=== PATIENT | female | born 1955 | race Caucasian/White ===

== ENCOUNTER 2018-07-27 10:09 | Emergency (ER) | payer OTHER ==
[2018-07-27] MEDS ORDERED: Diltiazem IV* 5 MG/ML 5 ML VIAL (for loading dose/IV Push) (25 MG) ONE (10:33)
[2018-07-27] MEDS ORDERED: Diltiazem IV* 5 MG/ML 5 ML VIAL (for loading dose/IV Push) (25 MG) IV SLOW PU ONE (10:34)
--- NOTE | 2018-07-27 10:38 | ED ---
Palpitations / Dysrhythmia - HPI Summary HPI Summary: This pt is a 62 y/o female presenting to [facility] via EMS for palpitations. Pt reports she was at her PCP's office today for a check up to follow up on her DM. Pt states her PCP told her she was in afib and was referred to the ED. She notes weakness and palpitations, characterized as racing heart beat, since this morning. Denies nausea, vomiting, chest pain, SOB. Last time she had palpitations prior to today was a few weeks ago. Pt has had palpitations intermittently in the past. Pt reports she was told by a industry consultant she had a "leaky valve" and placed her on beta blockers. She tried the medications but because they didn't make her feel well she stopped them. Denies diagnosis of afib. Denies hx of ND, HTN. She has never had a stress test but has had a holter monitor in the past. She is NOT on any anticoagulants. Pt is on Metformin. - History of Current Complaint Chief Complaint: EDDysrhythmPalp Hx Obtained From: Patient Onset/Duration: Lasting Hours, Still Present Severity Currently: Moderate Character: Fast, Irregular Aggravating: Nothing Alleviating: Nothing Associated Signs & Symptoms: Negative - Allergy/Home Medications Allergies/Adverse Reactions: Allergies Allergy/AdvReac Type Severity Reaction Status Date / Time No Known Allergies Allergy Verified 07/27/18 10:19 PMH/Surg Hx/FS Hx/Imm Hx Endocrine/Hematology History: Reports: Hx Diabetes Cardiovascular History: Denies: Hx Hypertension, Hx Myocardial Infarction Musculoskeletal History: Reports: Hx Arthritis Infectious Disease History: No Infectious Disease History: Denies: Traveled Outside the [place] in Last 30 Days - Family History Known Family History: Negative: Respiratory Disease - Social History Alcohol Use: Occasionally Substance Use Type: Reports: None Smoking Status (MU): Never Smoked Tobacco Review of Systems Negative: Fever, Chills Positive: Palpitations. Negative: Chest Pain Negative: Shortness Of Breath Negative: Vomiting, Nausea Positive: Weakness All Other Systems Reviewed And Are Negative: Yes Physical Exam - Summary Physical Exam Summary: Appearance: Well appearing, no pain distress Skin: warm, dry, reflects adequate perfusion Head/face: normal Eyes: EOMI, PATRICIA ENT: normal Neck: supple, non-tender Respiratory: CTA, breath sounds present Cardiovascular: Irregularly irregular heart beat and tachycardic Abdomen: non-tender, soft Musculoskeletal: normal, strength/ROM intact Neuro: normal, sensory motor intact, A&Ox3 Triage Information Reviewed: Yes Vital Signs On Initial Exam: Initial Vitals Temp Pulse Resp BP Pulse Ox 98.2 F 140 16 135/101 97 07/27/18 10:16 07/27/18 10:16 07/27/18 10:16 07/27/18 10:16 07/27/18 10:16 Vital Signs Reviewed: Yes Diagnostics - Vital Signs Vital Signs Temp Pulse Resp BP Pulse Ox 07/27/18 10:16 98.2 F 140 16 135/101 97 - Laboratory Result Diagrams: 07/27/18 11:30 07/27/18 10:25 Lab Statement: Any lab studies that have been ordered have been reviewed, and results considered in the medical decision making process. - Radiology Chest XR Radiology Interpretation Completed By: Radiologist Summary of Radiographic Findings: IMPRESSION: No active cardiopulmonary disease. Dr. Shearer has reviewed this report. - EKG 10:19 Cardiac Rate: Tachycardia - at 130 bpm EKG Rhythm: Atrial Fibrillation Summary of EKG Findings: Afib at 130 bpm 12:24 Cardiac Rate: NL - at 63 bpm EKG Rhythm: Sinus Rhythm Summary of EKG Findings: No acute changes Re-Evaluation - Re-Evaluation First Eval Re-Evaluation Time: 10:51 Change: Improved Comment: Heart rate in the 70s after Diltiazem. Second Eval Re-Evaluation Time: 12:10 Change: Improved Comment: Reviewed the lab results with the pt. Will repeat another EKG and speak with industry consultant. Third Eval Re-Evaluation Time: 12:56 Change: Improved Comment: Discussed the discharge plan with pt. She understands and agrees. Course/Dx - Course Assessment/Plan: Pt is a 62 y/o female who presents via EMS for palpitations. Pt states her PCP told her she was in afib and was referred to the ED. She notes weakness and palpitations, characterized as racing heart beat, since this morning. Blood work, urinalysis, EKG, CXR obtained. EKG shows atrial fibrillation at 130 bpm. Chest XR is negative. In the ED course the pt received diltiazem, magnesium sulfate. Discussed with Dr. Torres, industry consultant , who recommends Cardizem and Eliquis. Dr. Torres recommends discharge and follow up with him in his office. Pt will be discharged home with follow up from Dr. Torres. Pt was given prescriptions for Eliquis and Cardizem. She is instructed to return to the ED for any new or worsening symptoms. - Diagnoses Differential Diagnosis/HQI/PQRI: Positive: Coronary Artery Disease, Paroxymal SVT, Other - a fib Provider Diagnoses: Atrial fibrillation - Physician Notifications Discussed Care Of Patient With: Darrin oTrres - industry consultant Time Discussed With Above Provider: 12:42 Instructed by Provider To: Other - Discussed with Dr. Torres, industry consultant, who recommends Cardizem and Eliquis, discharge and follow up with him in his office. - Critical Care Time Critical Care Time: 30-74 min Discharge - Sign-Out/Discharge Documenting (check all that apply): Patient Departure - Discharge home Patient Received Moderate/Deep Sedation with Procedure: No - Discharge Plan Condition: Stable Disposition: HOME Prescriptions: Apixaban [Eliquis] 5 mg PO BID #60 tab.ds.pk dilTIAZem HCl [Cardizem LA] 120 mg PO ONCE #30 tab.er.24h Patient Education Materials: A-fib (Atrial Fibrillation) (ED) Referrals: Darrin Torres DO [Medical Doctor] - Emil Garcia MD [Medical Doctor] - Additional Instructions: Please follow up with Dr. Torres, industry consultant, in 2-3 days. RETURN TO THE ED FOR ANY NEW OR WORSENING SYMPTOMS. - Billing Disposition and Condition Condition: STABLE Disposition: Home - Attestation Statements Document Initiated by Evelyne: Yes Documenting Scribe: Mary [place] Provider For Whom Evelyne is Documenting (Include Credential): Nathan Shearer MD Scribe Attestation: Mary Eckert, scribed for Nathan Shearer MD on 07/27/18 at 1352. Scribe Documentation Reviewed: Yes Provider Attestation: The documentation as recorded by the Mary charles accurately reflects the service I personally performed and the decisions made by me, Nathan Shearer MD Status of Scribe Document: Viewed
[2018-07-27 11:02] LABS: INR 0.92 (0.77-1.02)
[2018-07-27 11:38] LABS: Albumin 4.1 g/dL (3.2-5.2); Calcium 9.7 mg/dL (8.6-10.3); Magnesium 1.7 mg/dL (1.9-2.7); Potassium 4.2 mmol/L (3.5-5.0); Total Bilirubin 0.3 mg/dL (0.2-1.0)
[2018-07-27 11:41] LABS: ABS Basophils 0.1 10^3/ul (0-0.2); ABS Eosinophils 0.2 10^3/ul (0-0.6); ABS Lymphocytes 2.4 10^3/ul (1.0-4.8); ABS Monocytes 0.5 10^3/ul (0-0.8); ABS Neutrophils 5.6 10^3/ul (1.5-7.7); ABS Nucleated RBC 0 10^3/ul; Eosinophil % 2.7 %; Hematocrit 37 % (33-41); Hemoglobin 12.6 g/dL (12.0-16.0); Lymphocyte % 27.3 %; Mean Corpuscular HGB Conc 34 g/dL (31-36); Mean Corpuscular Hemoglobin 30 pg (27-31); Mean Corpuscular Volume 89 fL (80-97); Mean Platelet Volume 7.8 fL (7.4-10.4); Nucleated Red Blood Cells % 0.1; Platelet Count 359 10^3/uL (150-450); Red Cell Distribution Width 13 % (10.5-15); White Blood Count 8.8 10^3/uL (3.5-10.8)
[2018-07-27] MEDS ORDERED: Magnesium Sulfate 1 GM IV* 1 GM/100 ML BAG IV ONE (11:41)
[2018-07-27 11:44] LABS: Albumin/Globulin Ratio 1.8 (1-3); BUN/Creatinine Ratio 25.4 (8-20); EGFR African American 116.6 (>60); EGFR Non-African American 96.4 (>60); Globulin 2.3 g/dL (2-4); Total Protein 6.4 g/dL (6.4-8.9)
[2018-07-27 11:52] LABS: TSH (Thyroid Stimulating Horm) 1.43 mcIU/mL (0.34-5.60)
[2018-07-27] MEDS ORDERED: Apixaban* 5 MG TAB PO ONE (12:50)
[2018-07-27 12:52] LABS: Urine Appearance Clear; Urine Bacteria Absent (Absent); Urine Bilirubin Negative (Negative); Urine Blood 1+ (Negative); Urine Color Yellow; Urine Glucose Negative (Negative); Urine Ketones Negative (Negative); Urine Nitrite Negative (Negative); Urine Protein Negative (Negative); Urine Red Blood Cell Trace(0-2/hpf) (Absent); Urine Specific Gravity 1.011 (1.010-1.030); Urine Squamous Epithelial Cell Present (Absent); Urine Urobilinogen Negative (Negative); Urine White Blood Cell Trace(0-5/hpf) (Absent)
[2018-07-27] MEDS ORDERED: Diltiazem CD CAP* 120 MG PO SCH (13:00)
[2018-07-27 13:27] VITALS: BP 132/63
== END 2018-07-27 13:26 | disposition home or self-care (01) ==
LOC: ED 10:09
DX: I48.91 Unspecified atrial fibrillation (principal); E11.9 Type 2 diabetes mellitus without complications; M19.90 Unspecified osteoarthritis, unspecified site
CPT/HCPCS: 36415; 71045; 80053; 81003; 81015; 83605; 83735; 84443; 84484; 85025; 85610; 85730; 87086; 93005; 96374; 96375; 99284; A9270-GY; J3475

== ENCOUNTER 2019-01-20 22:16 | Emergency (ER) | payer OTHER ==
[2019-01-21 00:17] LABS: INR 1.23 (0.82-1.09)
[2019-01-21 00:28] LABS: Albumin 4.2 g/dL (3.2-5.2); Albumin/Globulin Ratio 1.7 (1-3); BUN/Creatinine Ratio 26.7 (8-20); Calcium 9.6 mg/dL (8.6-10.3); EGFR Non-African American 63.7 (>60); Globulin 2.5 g/dL (2-4); Potassium 4.5 mmol/L (3.5-5.0); Total Bilirubin 0.3 mg/dL (0.2-1.0); Total Protein 6.7 g/dL (6.4-8.9)
[2019-01-21 00:35] LABS: ABS Basophils 0.1 10^3/ul (0-0.2); ABS Eosinophils 0.1 10^3/ul (0-0.6); ABS Lymphocytes 3.6 10^3/ul (1.0-4.8); ABS Monocytes 0.7 10^3/ul (0-0.8); ABS Neutrophils 7.5 10^3/ul (1.5-7.7); Eosinophil % 1.2 %; Hematocrit 39 % (35-47); Hemoglobin 13.1 g/dL (12.0-16.0); Lymphocyte % 29.9 %; Mean Corpuscular HGB Conc 33 g/dL (31-36); Mean Corpuscular Hemoglobin 30 pg (27-31); Mean Corpuscular Volume 91 fL (80-97); Mean Platelet Volume 8.3 fL (7.4-10.4); Platelet Count 343 10^3/uL (150-450); Red Blood Count 4.35 10^6 /uL (3.70-4.87); Red Cell Distribution Width 13 % (10-15)
--- NOTE | 2019-01-21 01:04 | ED ---
Palpitations / Dysrhythmia - HPI Summary HPI Summary: The patient is a 63 y/o F presenting to [facility] with a chief complaint of atrial fibrillation episode with fluttering palpitations beginning 01/19/19. She reports that she had the fluttering sensation and noted a HR over 200 bpm two nights ago, per heart monitor. She took Metoprolol then, and the sensation resolved in about two hours. Yesterday, she had been riding bikes with episodes of resting, and then went home, had dinner, and had the fluttering again. She took Metoprolol to no relief with the dysrhythmia lasting since 1999 last night. Currently, her symptoms are rated 3/10 in severity. She additionally c/o mild pain in the left arm. She denies any dizziness or nausea. Her real estate leasing agent is Dr. Torres. She is scheduled for an ablation on 02/17/19. PMHx: DM Type II ( Metformin), Afib (dx one month ago), arthritis, osteoporosis. Nonsmoker, occasional EtOH, no substance use. Medications reviewed. Allergies noted. - History of Current Complaint Chief Complaint: EDDysrhythmPalp Time Seen by Provider: 01/21/19 00:57 Hx Obtained From: Patient Onset/Duration: Sudden Onset, Lasting Hours - current episode since 1999 last night, Still Present Severity Initially: Mild Severity Currently: Moderate Character: Fluttering Aggravating: Nothing Alleviating: Nothing - Allergy/Home Medications Allergies/Adverse Reactions: Allergies Allergy/AdvReac Type Severity Reaction Status Date / Time No Known Allergies Allergy Verified 01/20/19 22:28 Home Medications: Home Medications Losartan TAB* 25 mg PO DAILY 01/21/19 [History Confirmed 01/21/19] Metoprolol Succinate XL TAB* 25 mg PO DAILY 01/21/19 [History Confirmed 01/21/19 ] Multaq TAB* 1 tab PO DAILY 01/21/19 [History Confirmed 01/21/19] metFORMIN* 850 mg PO DAILY 01/21/19 [History Confirmed 01/21/19] PMH/Surg Hx/FS Hx/Imm Hx Endocrine/Hematology History: Reports: Hx Diabetes - Type II Cardiovascular History: Reports: Hx Atrial Fibrillation Denies: Hx Hypertension, Hx Myocardial Infarction Musculoskeletal History: Reports: Hx Arthritis, Hx Osteoporosis - Surgical History Surgical History: None Surgery Procedure, Year, and Place: none Infectious Disease History: No Infectious Disease History: Denies: Traveled Outside the [place] in Last 30 Days - Family History Known Family History: Negative: Respiratory Disease - Social History Alcohol Use: Occasionally Hx Substance Use: No Substance Use Type: Reports: None Hx Tobacco Use: No Smoking Status (MU): Never Smoked Tobacco Review of Systems Positive: Palpitations - fluttering sensation Negative: Nausea Positive: Myalgia - in left arm Neurological: Other - Negative: dizziness. All Other Systems Reviewed And Are Negative: Yes Physical Exam - Summary Physical Exam Summary: Appearance: Well-appearing, Well-nourished, lying in bed comfortably Skin: Warm, dry, no obvious rash Eyes: sclera anicteric, no conjunctival pallor ENT: mucous membranes moist, pharynx appears normal Neck: Supple, nontender Respiratory: Clear to auscultation, no signs of respiratory distress Cardiovascular: Irregularly irregular rate with controlled rhythm. No murmurs. Normal distal pulses in tibial and radial bilaterally. Abdomen: Soft, nontender, normal active bowel sounds present Musculoskeletal: Normal, Strength/ROM Intact Neurological: A&Ox3, awake and alert, mentation is normal, speech is fluent and appropriate Psychiatric: affect is normal, does not appear anxious or depressed Triage Information Reviewed: Yes Vital Signs On Initial Exam: Initial Vitals Temp Pulse Resp BP Pulse Ox 98.8 F 99 20 123/79 94 01/20/19 22:26 01/20/19 22:26 01/20/19 22:26 01/20/19 22:26 01/20/19 22:26 Vital Signs Reviewed: Yes Diagnostics - Vital Signs Vital Signs Temp Pulse Resp BP Pulse Ox 01/21/19 00:43 81 97 01/21/19 00:42 75 134/89 97 01/20/19 22:26 98.8 F 99 20 123/79 94 - Laboratory Lab Results: Lab Results 01/20/19 01/20/19 01/20/19 Range/Units 23:59 23:59 23:59 WBC 12.0 H (3.5-10.8) 10^3/uL RBC 4.35 (3.70-4.87) 10^6 /uL Hgb 13.1 (12.0-16.0) g/dL Hct 39 (35-47) % MCV 91 (80-97) fL MCH 30 (27-31) pg MCHC 33 (31-36) g/dL RDW 13 (10-15) % Plt Count 343 (150-450) 10^3/uL MPV 8.3 (7.4-10.4) fL Neut % (Auto) 62.8 % Lymph % (Auto) 29.9 % [place] % (Auto) 5.6 % Eos % (Auto) 1.2 % Baso % (Auto) 0.5 % Absolute Neuts (auto) 7.5 (1.5-7.7) 10^3/ul Absolute Lymphs (auto) 3.6 (1.0-4.8) 10^3/ul Absolute Monos (auto) 0.7 (0-0.8) 10^3/ul Absolute Eos (auto) 0.1 (0-0.6) 10^3/ul Absolute Basos (auto) 0.1 (0-0.2) 10^3/ul Absolute Nucleated RBC 0.0 10^3/ul Nucleated RBC % 0.0 INR (Anticoag Therapy) 1.23 H (0.82-1.09) Sodium 139 (135-145) mmol/L Potassium 4.5 (3.5-5.0) mmol/L Chloride 106 (101-111) mmol/L Carbon Dioxide 28 (22-32) mmol/L Anion Gap 5 (2-11) mmol/L BUN 24 (6-24) mg/dL Creatinine 0.90 (0.51-0.95) mg/dL Est GFR ( Amer) 77.0 (>60) Est GFR (Non-Af Amer) 63.7 (>60) BUN/Creatinine Ratio 26.7 H (8-20) Glucose 108 H (70-100) mg/dL Calcium 9.6 (8.6-10.3) mg/dL Total Bilirubin 0.30 (0.2-1.0) mg/dL AST 18 (13-39) U/L ALT 26 (7-52) U/L Alkaline Phosphatase 64 (34-104) U/L Troponin I 0.00 (<0.04) ng/mL Total Protein 6.7 (6.4-8.9) g/dL Albumin 4.2 (3.2-5.2) g/dL Globulin 2.5 (2-4) g/dL Albumin/Globulin Ratio 1.7 (1-3) Result Diagrams: 01/20/19 23:59 01/20/19 23:59 Lab Statement: Any lab studies that have been ordered have been reviewed, and results considered in the medical decision making process. - EKG 2233 Cardiac Rate: Other Rate - 105 bpm EKG Rhythm: Atrial Fibrillation Summary of EKG Findings: EKG at 2234 reveals atrial fibrillation at 105 bpm. No STEMI. Re-Evaluation - Re-Evaluation First Eval Re-Evaluation Time: 01:30 Comment: After Dr. Torres's consult with recommendation, the pt declined cardioversion at this time. We discussed plan for discharge. Course/Dx - Course Course Of Treatment: Pt is a 63 y/o F with cc of atrial fibrillation episodes over the last two days described as a fluttering sensation without much relief using Metoprolol at home. Upon physical exam, the pt exhibits an irregularly irregular rate with controlled rhythm. Blood work reveals WBCs 12.0, INR 1.23, BUN/Creatinine ratio 26.7, and glucose 108, without any other significant abnormalities. EKG at 2234 reveals atrial fibrillation at 105 bpm. I consulted with Dr. Torres from cardiology, and he recommends cardioversion instead of the ablation the pt has scheduled. After discussing this plan with the pt, she declines cardioversion at this time. We discussed plan for safe discharge with follow up with Dr. Torres. She understands and agrees with this plan. - Diagnoses Provider Diagnoses: Paroxysmal atrial fibrillation - Physician Notifications Discussed Care Of Patient With: Darrin Torres - cardiology Time Discussed With Above Provider: 01:10 Instructed by Provider To: Other - I discussed the pt's case with Dr. Torres, and he recommends cardioversion instead of ablation, so I will discuss with the pt. Discharge ED - Sign-Out/Discharge Documenting (check all that apply): Patient Departure - Patient will be discharged home. Patient Received Moderate/Deep Sedation with Procedure: No - Discharge Plan Condition: Good Disposition: HOME Patient Education Materials: AElefib (Atrial Fibrillation) (ED) Referrals: Darrin Torres DO [Medical Doctor] - Additional Instructions: Your heart rate is well controlled and you feel generally well, so it is ok to leave you in this rhythm and let your body reset it. If that doesn't happen over the next couple of days Dr. Torres can certainly arrange an outpatient elective cardioversion. If it becomes very bothersome to you we can see you back and cardiovert you here, though timing would be up to the patient flow in the ED. I will be on tomorrow night, and of course we always have physicians in the ED at all times. - Billing Disposition and Condition Condition: GOOD Disposition: Home - Attestation Statements Document Initiated by Evelyne: Yes Documenting Scribe: Ana Narayan Provider For Whom Evelyne is Documenting (Include Credential): Dr. Rc Peralta MD Scribe Attestation: I, Ana Narayan, scribed for Dr. Rc Peralta MD on 01/22/19 at 0500. Scribe Documentation Reviewed: Yes Provider Attestation: The documentation as recorded by the Ana charles accurately reflects the service I personally performed and the decisions made by me, Dr. Rc Peralta MD Status of Scribe Document: Viewed
[2019-01-21 02:06] VITALS: BP 0/0
== END 2019-01-21 01:40 | disposition home or self-care (01) ==
LOC: ED 22:16
DX: I48.0 Paroxysmal atrial fibrillation (principal); M79.602 Pain in left arm; E11.9 Type 2 diabetes mellitus without complications; Z79.84 Long term (current) use of oral hypoglycemic drugs
CPT/HCPCS: 36415; 80053; 84484; 85025; 85610; 93005; 99282

== ENCOUNTER 2023-06-13 09:36 | Inpatient (IN) ==
[2023-06-13] MEDS ORDERED: Azithromycin 500 mg/250 ml NS 500 MG/250 ML BAG IVPB ONE (10:31)
[2023-06-13 11:31] LABS: ABS Basophils 0.1 10^3/uL (0.0-0.1); ABS Lymphocytes 1.9 10^3/uL (1.0-4.8); ABS Monocytes 0.5 10^3/uL (0.0-0.9); ABS Neutrophils 10.8 10^3/uL (1.5-7.6); ABS Nucleated RBC 0.01 10^3/ul; Eosinophil % 0.1 %; Hematocrit 33.8 % (35-45); Hemoglobin 11.4 g/dL (11.5-14.3); Lymphocyte % 14.1 %; Mean Corpuscular Hemoglobin 29.6 pg (27-33); Mean Corpuscular Hgb Conc 33.6 g/dL (31-36); Mean Corpuscular Volume 87.9 fL (80-97); Mean Platelet Volume 7.2 fL (7.5-11.2); Nucleated Red Blood Cells % 0.1 %/100WBC (0.0-0.8); Platelet Count 381 10^3/uL (150-450); Red Blood Count 3.85 10^6/uL (3.63-4.92); Red Cell Distribution Width 12.9 % (12-17); White Blood Count 13.2 10^3/uL (3.8-11.8)
[2023-06-13 12:02] LABS: Albumin 3.7 g/dL (3.2-5.2); Albumin/Globulin Ratio 1.1 (1-3); Calcium 9.2 mg/dL (8.6-10.3); Creatinine, Serum 0.6 mg/dL (0.51-0.95); Globulin 3.4 g/dL (2-4); Potassium 4.1 mmol/L (3.5-5.0); Total Bilirubin 0.5 mg/dL (0.2-1.0); Total Protein 7.1 g/dL (6.4-8.9); eGFR CKD-EPI 99.5 (>60)
[2023-06-13 12:59] LABS: High Sensitivity Troponin 1 Hr 187 pg/mL (<15)
[2023-06-13] MEDS: Iodixanol (CONTRAST) 320 MG/ML 100 ML SDV IV ONE (13:34)
[2023-06-13] MEDS ORDERED: Dextrose 50% Syringe 50 ml 25 GM/50 ML SYRINGE IV PUSH PRN (15:37)
[2023-06-13] MEDS: Heparin DRIP 25,000 UNITS BAG 25,000 UNITS/250 ML BAG IV SCH (16:34)
[2023-06-13] MEDS: Heparin 5000 UNITS/ML 1 mL VIAL IV SCH (16:34)
[2023-06-13 17:34] LABS: ABS Basophils 0.1 10^3/uL (0.0-0.1); ABS Eosinophils 0.1 10^3/uL (0.0-0.5); ABS Lymphocytes 2.9 10^3/uL (1.0-4.8); ABS Monocytes 0.6 10^3/uL (0.0-0.9); ABS Neutrophils 9.6 10^3/uL (1.5-7.6); ABS Nucleated RBC 0.01 10^3/ul; Eosinophil % 0.5 %; Hematocrit 32.9 % (35-45); Hemoglobin 11.2 g/dL (11.5-14.3); Lymphocyte % 22.1 %; Mean Corpuscular Hemoglobin 29.8 pg (27-33); Mean Corpuscular Hgb Conc 33.9 g/dL (31-36); Mean Corpuscular Volume 88.1 fL (80-97); Mean Platelet Volume 7.4 fL (7.5-11.2); Platelet Count 389 10^3/uL (150-450); Red Blood Count 3.74 10^6/uL (3.63-4.92); Red Cell Distribution Width 12.8 % (12-17); White Blood Count 13.3 10^3/uL (3.8-11.8)
[2023-06-13 17:52] LABS: Creatinine, Serum 0.66 mg/dL (0.51-0.95); eGFR CKD-EPI 97.3 (>60)
[2023-06-14 05:06] LABS: ABS Basophils 0.1 10^3/uL (0.0-0.1); ABS Eosinophils 0.1 10^3/uL (0.0-0.5); ABS Lymphocytes 3.1 10^3/uL (1.0-4.8); ABS Monocytes 0.5 10^3/uL (0.0-0.9); ABS Neutrophils 8.8 10^3/uL (1.5-7.6); Hematocrit 31.4 % (35-45); Hemoglobin 10.8 g/dL (11.5-14.3); Lymphocyte % 24.8 %; Mean Corpuscular Hemoglobin 30.1 pg (27-33); Mean Corpuscular Hgb Conc 34.4 g/dL (31-36); Mean Corpuscular Volume 87.4 fL (80-97); Mean Platelet Volume 7.2 fL (7.5-11.2); Platelet Count 351 10^3/uL (150-450); Red Blood Count 3.59 10^6/uL (3.63-4.92); Red Cell Distribution Width 12.7 % (12-17); White Blood Count 12.6 10^3/uL (3.8-11.8)
[2023-06-14 05:23] LABS: Calcium 8.7 mg/dL (8.6-10.3); Creatinine, Serum 0.54 mg/dL (0.51-0.95); Magnesium 1.7 mg/dL (1.9-2.7); eGFR CKD-EPI 102.1 (>60)
[2023-06-14] MEDS: Aspirin EC 81 mg TAB.EC (enteric coated) PO SCH (08:37)
[2023-06-15 06:18] LABS: ABS Basophils 0.1 10^3/uL (0.0-0.1); ABS Eosinophils 0.1 10^3/uL (0.0-0.5); ABS Lymphocytes 2.8 10^3/uL (1.0-4.8); ABS Monocytes 0.5 10^3/uL (0.0-0.9); ABS Neutrophils 6.9 10^3/uL (1.5-7.6); ABS Nucleated RBC 0.01 10^3/ul; Eosinophil % 1.2 %; Hematocrit 31.4 % (35-45); Lymphocyte % 27.2 %; Mean Corpuscular Hemoglobin 30.2 pg (27-33); Mean Corpuscular Volume 86.4 fL (80-97); Nucleated Red Blood Cells % 0.1 %/100WBC (0.0-0.8); Platelet Count 350 10^3/uL (150-450); Red Blood Count 3.63 10^6/uL (3.63-4.92); Red Cell Distribution Width 12.8 % (12-17); White Blood Count 10.4 10^3/uL (3.8-11.8)
[2023-06-15 06:39] LABS: Creatinine, Serum 0.59 mg/dL (0.51-0.95)
[2023-06-16 06:39] LABS: ABS Basophils 0.1 10^3/uL (0.0-0.1); ABS Eosinophils 0.2 10^3/uL (0.0-0.5); ABS Lymphocytes 2.2 10^3/uL (1.0-4.8); ABS Monocytes 0.4 10^3/uL (0.0-0.9); ABS Neutrophils 6.6 10^3/uL (1.5-7.6); Eosinophil % 2.3 %; Hematocrit 31.4 % (35-45); Hemoglobin 10.7 g/dL (11.5-14.3); Lymphocyte % 22.8 %; Mean Corpuscular Hgb Conc 34.1 g/dL (31-36); Mean Corpuscular Volume 87.8 fL (80-97); Mean Platelet Volume 7.4 fL (7.5-11.2); Platelet Count 351 10^3/uL (150-450); Red Blood Count 3.57 10^6/uL (3.63-4.92); Red Cell Distribution Width 12.8 % (12-17); White Blood Count 9.4 10^3/uL (3.8-11.8)
[2023-06-16 07:01] LABS: Calcium 8.8 mg/dL (8.6-10.3); Creatinine, Serum 0.63 mg/dL (0.51-0.95); Magnesium 1.8 mg/dL (1.9-2.7); Phosphorus 3.4 mg/dL (2.5-5.0); Potassium 3.5 mmol/L (3.5-5.0); eGFR CKD-EPI 98.4 (>60)
[2023-06-16] MEDS: Potassium Chlor 20 meq TAB.ER PO SCH (08:33)
[2023-06-17 06:27] LABS: ABS Basophils 0.1 10^3/uL (0.0-0.1); ABS Eosinophils 0.3 10^3/uL (0.0-0.5); ABS Lymphocytes 2.4 10^3/uL (1.0-4.8); ABS Monocytes 0.5 10^3/uL (0.0-0.9); ABS Neutrophils 5.1 10^3/uL (1.5-7.6); ABS Nucleated RBC 0.01 10^3/ul; Eosinophil % 3.6 %; Hematocrit 31.7 % (35-45); Hemoglobin 10.8 g/dL (11.5-14.3); Lymphocyte % 28.7 %; Mean Corpuscular Hemoglobin 29.7 pg (27-33); Mean Corpuscular Hgb Conc 34.1 g/dL (31-36); Mean Corpuscular Volume 87.2 fL (80-97); Mean Platelet Volume 7.2 fL (7.5-11.2); Nucleated Red Blood Cells % 0.1 %/100WBC (0.0-0.8); Platelet Count 362 10^3/uL (150-450); Red Blood Count 3.63 10^6/uL (3.63-4.92); Red Cell Distribution Width 12.9 % (12-17); White Blood Count 8.3 10^3/uL (3.8-11.8)
[2023-06-17 06:43] LABS: Creatinine, Serum 0.61 mg/dL (0.51-0.95); eGFR CKD-EPI 99.2 (>60)
[2023-06-17] MEDS: D5W 1/2 NS 1000 ml BAG 1,000 ML IV SCH (12:32)
[2023-06-17] MEDS ORDERED: Lidocaine 1% VIAL 10 MG/ML 30 ML VIAL ONE (13:21)
[2023-06-17] MEDS ORDERED: Heparin 2 UNITS/ML IVPREMIX 3,000 UNIT/1,500 ML BAG IV ONE (13:21)
[2023-06-17] MEDS ORDERED: Iohexol 350 (CONTRAST) 100 ML PAK IV ONE (13:58)
[2023-06-17] MEDS ORDERED: Midazolam 5 mg/5 ml VIAL 1 mg/ml 5 ml VIAL (5 mg) ONE (14:00)
[2023-06-17] MEDS ORDERED: Heparin 1,000 UNIT/ML 10 ml (10,000 UNITS) CATHLAB/DIALYSIS ONE (14:00)
[2023-06-17] MEDS ORDERED: fentaNYL 100 mcg/2 ml 50 MCG/ML VIAL ONE (14:00)
[2023-06-18 06:28] LABS: ABS Eosinophils 0.2 10^3/uL (0.0-0.5); ABS Lymphocytes 1.7 10^3/uL (1.0-4.8); ABS Monocytes 0.3 10^3/uL (0.0-0.9); ABS Neutrophils 4.7 10^3/uL (1.5-7.6); ABS Nucleated RBC 0.01 10^3/ul; Eosinophil % 2.9 %; Hemoglobin 9.2 g/dL (11.5-14.3); Lymphocyte % 24.8 %; Mean Corpuscular Hemoglobin 30.8 pg (27-33); Mean Corpuscular Hgb Conc 34.2 g/dL (31-36); Mean Corpuscular Volume 90.3 fL (80-97); Mean Platelet Volume 7.4 fL (7.5-11.2); Nucleated Red Blood Cells % 0.2 %/100WBC (0.0-0.8); Platelet Count 302 10^3/uL (150-450); Red Blood Count 2.99 10^6/uL (3.63-4.92); Red Cell Distribution Width 13.2 % (12-17)
[2023-06-18 06:56] LABS: Calcium 8.4 mg/dL (8.6-10.3); Creatinine, Serum 0.61 mg/dL (0.51-0.95); Magnesium 1.7 mg/dL (1.9-2.7); Phosphorus 4.3 mg/dL (2.5-5.0); eGFR CKD-EPI 99.2 (>60)
[2023-06-18] MEDS: Iodixanol (CONTRAST) 320 MG/ML 100 ML SDV IV ONE (11:09)
[2023-06-18 12:09] LABS: % Iron Saturation 28 % (15-55); .Transferrin 203 mg/dL (203-362); Iron 80 ug/dL (50-212); Total Iron Binding Capacity 284 mcg/dL (250-450); Unsaturated Iron Binding 204 ug/dL
[2023-06-18 12:32] LABS: Ferritin 125.3 ng/mL (11-307)
[2023-06-18 12:35] LABS: Folate > 20.00 ng/mL (5.90-24.80)
[2023-06-18 12:36] LABS: Vitamin B12 596 pg/mL (180-914)
[2023-06-19 06:09] LABS: Creatinine, Serum 0.61 mg/dL (0.51-0.95); eGFR CKD-EPI 99.2 (>60)
[2023-06-20 06:27] LABS: Hematocrit 28.6 % (35-45); Hemoglobin 9.8 g/dL (11.5-14.3); Mean Corpuscular Hemoglobin 30.1 pg (27-33); Mean Corpuscular Hgb Conc 34.2 g/dL (31-36); Platelet Count 367 10^3/uL (150-450); Red Blood Count 3.25 10^6/uL (3.63-4.92); Red Cell Distribution Width 12.8 % (12-17)
[2023-06-20 06:48] LABS: Calcium 8.9 mg/dL (8.6-10.3); Creatinine, Serum 0.68 mg/dL (0.51-0.95); Phosphorus 4.6 mg/dL (2.5-5.0); Potassium 4.2 mmol/L (3.5-5.0); eGFR CKD-EPI 96.6 (>60)
[2023-06-20 10:22] VITALS: BP 112/68
== END 2023-06-20 10:40 | DRG 270 ==
LOC: ED 09:36 → EDHOLD 09:36 → SUATTDRO 15:34 → MEDTELE 19:52
PROVIDERS: ADMIT Hospitalist; ATTEND Internal Medicine